=== PATIENT | female | born 1995 | race Caucasian/White ===

== ENCOUNTER 2016-12-03 12:08 | Day surgery (SDC) | payer BC ==
--- NOTE | ~2016-12-03 | EGD ---
EGD REPORT [facility] [address] [address] NAME: ZAID MARQUEZ : [birth year] STATUS : REG [facility]#: [id number] AGE: 21 ADM/REG DATE : 12/03/16 MR#: [id number] REPORT SERV DATE: 12/03/16 DICTATED BY: REINALDO BARDALES DATE: 12/03/16 REPORT STATUS : Draft [facility] DATE: 12/03/16 Endoscopy Center Patient Name: Zaid Marquez Date of : 1995 Attending MD: REINALDO BARDALES MD Procedure Date No Time: 12/03/2016 Procedure: Upper GI endoscopy Indications: Abdominal pain in the right upper quadrant Referring MD: TIM WOOD Medicines: Sedation Required Anesthesia Staff Assistance, Monitored Anesthesia Care Complications: No immediate complications. Procedure: Pre-Anesthesia Assessment: - ASA Grade Assessment: II - A patient with mild systemic disease. After obtaining informed consent, the endoscope was passed under direct vision. Throughout the procedure, the patient's blood pressure, pulse, and oxygen saturations were monitored continuously. The GIF H190 [id number] was introduced through the mouth, and advanced to the second part of duodenum. The upper GI endoscopy was accomplished without difficulty. The patient tolerated the procedure well. Findings: Localized mild erythema was found at the gastroesophageal junction. Biopsies were taken with a cold forceps for histology. The entire examined stomach was normal. The cardia and gastric fundus were normal on retroflexion. The duodenal bulb and 2nd part of the duodenum were normal. Biopsies were taken with a cold forceps for histology. Impression: - Erythema at the gastroesophageal junction. Biopsied. - Normal stomach. - Normal duodenal bulb and 2nd part of the duodenum. Biopsied. Recommendation: - Await pathology results. Procedure Code(s): --- Professional --- 75034, Esophagogastroduodenoscopy, flexible, transoral; with biopsy, single or multiple Diagnosis Code(s): --- Professional --- K22.9, Disease of esophagus, unspecified EGD REPORT [facility] [address] [address] NAME: ZAID MARQUEZ : [birth year] [place] [facility] [place] [id number] AGE: 21 ADM/REG DATE : 12/03/16 MR#: [id number] REPORT SERV DATE: 12/03/16 DICTATED BY: REINALDO BARDALES DATE: 12/03/16 REPORT STATUS : Draft TRANSCRIBED BY: [employer] DATE: 12/03/16 R10.11, Right upper quadrant pain CPT copyright 2013 [employer]. All rights reserved. The codes documented in this report are preliminary and upon chest painting and sealing supervisor review may be revised to meet current compliance requirements. REINALDO BARDALES MD 12/03/2016 2:08 PM This report has been signed electronically. Number of Addenda: 0 Note Initiated On: 12/03/2016 1:52 PM Scope Withdrawal Time 0 hours 0 minutes 0 seconds [address] [id number]
--- NOTE | ~2016-12-03 | PREOPHP ---
PreOp History and Physical [id number] [facility] [place] [address] NAME: ZAID MARQUEZ : [birth year] STATUS : [facility]#: [id number] AGE: 21 ADM/REG DATE : 12/03/16 MR#: [id number] REPORT SERV DATE: 01/12/17 DICTATED BY: ELY AGEE III DATE: 01/12/17 REPORT STATUS : Draft TRANSCRIBED BY: [employer] DATE: 01/12/17 HISTORY OF PRESENT ILLNESS: This 21-year-old female comes to the operating room for laparoscopic cholecystectomy, possible laparotomy, for acalculous cholecystitis. The patient complains of chronic history of intermittent episodes of right upper quadrant abdominal pain. The pain has been associated with nausea. The pain is exacerbated by eating fried or greasy foods. The patient has evidence for acalculous cholecystitis. She comes to the operating room now for laparoscopic cholecystectomy, possible laparotomy. The patient's radiographic workup is technically normal with a HIDA scan showing an ejection fraction of 46%. Therefore, it has been explained to the patient that even though clinically she has evidence for acalculous cholecystitis, it is possible that her symptoms may not in any way be relieved or improved by surgery. This has been fully and completely explained to the patient and family prior to surgery. PAST MEDICAL HISTORY: History of migraine headaches. MEDICATIONS: Omeprazole, promethazine, Zantac, cyclobenzaprine, Lyrica, montelukast, Nasonex, Wml-Gj-Wflhltvc, Trokendi, zolmitriptan, Flexeril, and Linzess. ALLERGIES: CYMBALTA AND DOLOBID. PAST SURGICAL HISTORY: Includes right lung surgery for recurrent pneumothorax and sinus surgery. FAMILY HISTORY: Positive for cancer and diabetes. SOCIAL HISTORY: No history of tobacco or alcohol use. REVIEW OF SYSTEMS: The patient complains of fatigue and weight gain, wheezing, shortness of breath, reflux, indigestion, nausea, back pain, and frequent headaches. PHYSICAL EXAMINATION: GENERAL: This is a female, in no acute distress. She is alert and oriented x3. VITAL SIGNS: Blood pressure 131/82, pulse 109, temp 98.9. HEENT: Unremarkable. NEURO: Cranial nerves 2 through 12 are normal. LUNGS: Clear. CARDIAC: Normal. ABDOMEN: Soft. Nontender. No masses. EXTREMITIES: Normal. LABORATORY DATA: Abdominal ultrasound is normal. HIDA scan is normal with ejection fraction of 48%. Recent colonoscopy is normal. Recent upper endoscopy showed erythema at the GE junction, was otherwise normal. PreOp History and Physical [address] [address] NAME: ZAID MARQUEZ : [birth year] STATUS : [facility]#: [id number] AGE: 21 ADM/REG DATE : 12/03/16 MR#: [id number] REPORT SERV DATE: 01/12/17 DICTATED BY: ELY AGEE III DATE: 01/12/17 REPORT STATUS : Draft TRANSCRIBED BY: SHAWN DATE: 01/12/17 ASSESSMENT: A 21-year-old female with clinical evidence for acalculous cholecystitis (it should be noted that the patient went to the emergency room in October of this year). The CT scan of the abdomen and pelvis was performed at that time, which showed no evidence for an acute abnormality. PLAN: The patient comes to the operating room now for laparoscopic cholecystectomy, possible laparotomy. The fact that her symptoms may not be relieved by surgery has been fully and completely explained to the patient and her family prior to surgery. The procedure risks, benefits, and alternatives, including not limited to the risk for bleeding, infection, enterotomy, injury to abdominal structure, common bile duct injury, bile leak, retained common bile duct stone, postop diarrhea or incisional hernia, possible need for laparotomy, possible persistence of her symptoms unrelieved by surgery, and unforeseen complications including deep venous thrombosis, pulmonary embolus, myocardial infarction, stroke, pneumonia, , have been fully and completely explained to the patient and her family at length prior to surgery. The fact that this is a major operation with risk for major morbidity and mortality has been explained. The possible persistence of her symptoms totally unrelieved by surgery, particularly considering the fact that her radiographic workup is essentially normal has been explained. The option of nonoperative management was discussed with the patient and offered but declined. The patient has had questions, which were answered. She and her mother clearly understand the risks and agreed to the surgery as planned. CITLALLI/SHAWN Ely Agee III, M.D. / [id number] CC: David Shanks M.D.
--- NOTE | ~2016-12-03 | PREOPHP ---
PreOp History and Physical [address] [place]. [address] NAME: ZAID MARQUEZ : [birth year] STATUS : [facility]#: [id number] AGE: 21 ADM/REG DATE : 12/03/16 MR#: [id number] REPORT SERV DATE: 01/12/17 DICTATED BY: ELY ROBIN III DATE: 01/12/17 REPORT STATUS : Draft TRANSCRIBED BY: SHAWN DATE: 01/12/17 ADDENDUM: It should be noted that the patient has a history of recurrent spontaneous pneumothorax. She had back surgery earlier this year and has not had problems with recurrent pneumothorax since that time. The patient also has a history of migraine headaches and asthma and ovarian cyst. CITLALLI/SHAWN Ely Robin III, M.D. / [id number] CC: David Shanks M.D.
--- NOTE | ~2016-12-03 | EGD ---
EGD REPORT [facility] [address] [place] [address] NAME: ZAID MARQUEZ : [birth year] STATUS : REG [facility]#: [id number] AGE: 21 ADM/REG DATE : 12/03/16 MR#: [id number] REPORT SERV DATE: 12/03/16 DICTATED BY: REINALDO BARDALES DATE: 12/03/16 REPORT STATUS : Draft [facility]ANSCRIBED [facility]: [facility] DATE: 12/03/16 Endoscopy Center Patient Name: Zaid Marquez Date of : 1995 Attending MD: REINALDO BARDALES MD Procedure Date No Time: 12/03/2016 Procedure: Colonoscopy Indications: Abdominal pain in the right upper quadrant, Change in bowel habits, Constipation Referring MD: TIM WOOD Medicines: Monitored Anesthesia Care Complications: No immediate complications. Procedure: Pre-Anesthesia Assessment: - ASA Grade Assessment: II - A patient with mild systemic disease. After I obtained informed consent, the scope was passed under direct vision. Throughout the procedure, the patient's blood pressure, pulse, and oxygen saturations were monitored continuously. The PCF [id number] was introduced through the anus and advanced to the terminal ileum, with identification of the appendiceal orifice and IC valve. The colonoscopy was performed without difficulty. The patient tolerated the procedure well. The quality of the bowel preparation was good. Findings: The digital rectal exam was normal. Pertinent negatives include no palpable rectal lesions. The terminal ileum appeared normal. The colon (entire examined portion) appeared normal. Impression: - The examined portion of the ileum was normal. - The entire examined colon is normal. Recommendation: - Patient has a contact number available for emergencies. The signs and symptoms of potential delayed complications were discussed with the patient. Return to normal activities tomorrow. Written discharge instructions were provided to the patient. - Regular diet. - Continue present medications. - Repeat colonoscopy at age 51 for screening purposes. - Return to GI clinic in 1 month. - Use Prilosec (omeprazole) 40 mg PO daily for 2 months. EGD REPORT [facility] [address] [place]. [address] NAME: ZAID MARQUEZ : [birth year] STATUS : REG [facility] [place] PAT#: [id number] AGE: 21 ADM/REG DATE : 12/03/16 MR#: [id number] REPORT SERV DATE: 12/03/16 DICTATED BY: REINALDO BARDALES DATE: 12/03/16 REPORT STATUS : Draft TRANSCRIBED BY: [employer] DATE: 12/03/16 Procedure Code(s): --- Professional --- 27309, Colonoscopy, flexible, proximal to splenic flexure; diagnostic, with or without collection of specimen(s) by brushing or washing, with or without colon decompression (separate procedure) Diagnosis Code(s): --- Professional --- R10.11, Right upper quadrant pain R19.4, Change in bowel habit K59.00, Constipation, unspecified CPT copyright 2013 [employer] [place] [employer]. All rights reserved. The codes documented in this report are preliminary and upon recreational leader review may be revised to meet current compliance requirements. REINALDO BARDALES MD 12/03/2016 2:33 PM This report has been signed electronically. Number of Addenda: 0 Note Initiated On: 12/03/2016 1:46 PM Scope Withdrawal Time 0 hours 9 minutes 21 seconds [address] [place] [address]
[~2016-12-03 12:08] MED LIST: CHLOR-TRIMETON PO; DULERA 100 MCG/13 GM INH; DULERA 200 MCG/13 GM INH; FLEX PO; LYRICA150 MG PO; ORTHO TRI-CY PO; PROAIR HFA INH; TROKENDI PO; ZOMIG ZMT5 MG PO
[2017-02-11] MEDS ORDERED: SINGULAIR1 PO (14:07)
[2017-02-11] MEDS ORDERED: ASTEPRO0.15 % NAS (14:08)
[2017-02-11] MEDS ORDERED: PRILOSEC40 MG PO (14:09)
[2017-02-11] MEDS ORDERED: LINZESS 145 M145 MCG PO (14:10)
[2017-02-11] MEDS ORDERED: ZANTAC150 MG PO (14:10)
[2017-02-11] MEDS ORDERED: PR25 PO (14:11)
== END 2016-12-03 23:59 | disposition home or self-care (01) ==
LOC: DMU 12:08
PROVIDERS: Internal Medicine Gastroenterology
PROC: 0DJD8ZZ Inspection of Lower Intestinal Tract, Via Natural or Artificial Opening Endoscopic (ICD-10-PCS; 2016-12-03)
PROC: 0DB48ZX Excision of Esophagogastric Junction, Via Natural or Artificial Opening Endoscopic, Diagnostic (ICD-10-PCS; principal; 2016-12-03 14:00)
PROC: 0DB98ZX Excision of Duodenum, Via Natural or Artificial Opening Endoscopic, Diagnostic (ICD-10-PCS; 2016-12-03 14:00)
DX: K22.8 Other specified diseases of esophagus (principal); R19.4 Change in bowel habit; K59.00 Constipation, unspecified; R10.11 Right upper quadrant pain; I95.9 Hypotension, unspecified; R01.1 Cardiac murmur, unspecified; G43.909 Migraine, unspecified, not intractable, without status migrainosus; Z88.8 Allergy status to other drugs, medicaments and biological substances; Z79.899 Other long term (current) drug therapy; Z98.890 Other specified postprocedural states
CPT/HCPCS: 84703; 88305; 88342; J2250